=== PATIENT | female | born 1970 | race American Indian/Alaskan Native ===

== ENCOUNTER 2020-04-12 06:30 | Day surgery (SDC) | payer OTHER ==
[~2020-04-12 06:30] MED LIST: Lactated Ringers 1,000 ML IV SCH; Sodium Chloride 0.9% 10 ML SDV IV PRN; Sodium Chloride 0.9% 10 ML Syringe FLUSH PRN; Sodium Chloride 0.9% 2.5 ML Syringe FLUSH PRN
--- NOTE | 2020-04-12 07:10 | PCM.PREANE ---
Preanesthetic Assessment - Anesthesia/Transfusion/Family Hx Anesthesia History: Prior Anesthesia Without Reaction Family History of Anesthesia Reaction: No Transfusion History: No Prior Transfusion(s) Intubation History: Unknown - Review of Systems General: No Symptoms Pulmonary: No Symptoms Cardiovascular: No Symptoms Gastrointestinal: No Symptoms Neurological: No Symptoms Other: Reports: None - Physical Assessment Height: 5 ft 10 in Weight: 97.522 kg ASA Class: 2 Mental Status: Alert & Oriented x3 Airway Class: Mallampati = 1 Dentition: Reports: Normal Dentition Thyro-Mental Finger Breadths: 3 Mouth Opening Finger Breadths: 3 ROM/Head Extension: Full Lungs: Clear to Auscultation, Normal Respiratory Effort Cardiovascular: Regular Rate, Regular Rhythm - Allergies Allergies/Adverse Reactions: Allergies Allergy/AdvReac Type Severity Reaction Status Date / Time diclofenac Allergy Cannot Verified 04/09/20 12:02 Remember hydroxychloroquine Allergy Rash Verified 04/09/20 12:02 [From Plaquenil] sulfamethoxazole Allergy Rash Verified 04/09/20 12:02 [From Bactrim] trimethoprim [From Bactrim] Allergy Rash Verified 04/09/20 12:02 - Blood Blood Available: No - Anesthesia Plan Pre-Op Medication Ordered: None - Acknowledgements Anesthesia Type Planned: General Anesthesia Pt an Appropriate Candidate for the Planned Anesthesia: Yes Alternatives and Risks of Anesthesia Discussed w Pt/Guardian: Yes Pt/Guardian Understands and Agrees with Anesthesia Plan: Yes PreAnesthesia Questionnaire HEENT History: Reports: Other (See Below) Other HEENT History: wears glasses/contacts, hx fx nose Cardiovascular History: Reports: Other (See Below) Other Cardiovascular History: HTN in the past Respiratory History: Reports: None Gastrointestinal History: Reports: None Genitourinary History: Reports: None Musculoskeletal History: Reports: Fibromyalgia (mild) Neurological History: Reports: None Psychiatric History: Reports: Anxiety Endocrine/Metabolic History: Reports: Obesity/BMI 30+ (BMI 30.8) Hematologic History: Reports: Other (See Below) (h/o anemia) Immunologic History: Reports: None Oncologic (Cancer) History: Reports: None Dermatologic History: Reports: None - Past Surgical History Head Surgeries/Procedures: Reports: None HEENT Surgical History: Reports: None Cardiovascular Surgical History: Reports: None Respiratory Surgical History: Reports: None GI Surgical History: Reports: None Female Surgical History: Reports: None Endocrine Surgical History: Reports: None Neurological Surgical History: Reports: None Musculoskeletal Surgical History: Reports: Arthroscopic Knee, Other (See Below) Other Musculoskeletal Surgeries/Procedures:: anaid knee scopes, left foot reconstruction Oncologic Surgical History: Reports: None Dermatological Surgical History: Reports: None - SUBSTANCE USE Smoking Status *Q: Light Tobacco Smoker (< 5 cigarettes per day) Tobacco Use Within Last Twelve Months: Cigarettes - HOME MEDS Home Medications: Home Meds . [No Known Home Meds] 04/09/20 [History] - CURRENT (IN HOUSE) MEDS Current Meds: Current Medications Lactated Ringer's (Ringers, Lactated) 1,000 mls @ 100 mls/hr IV ASDIRECTED LEOY Sodium Chloride (Saline Flush) 10 ml FLUSH ASDIRECTED PRN PRN Reason: Keep Vein Open Sodium Chloride (Saline Flush) 2.5 ml FLUSH ASDIRECTED PRN PRN Reason: Keep Vein Open Sodium Chloride (Normal Saline) 10 ml IV ASDIRECTED PRN PRN Reason: IV Use
[2020-04-12] MEDS ORDERED: Midazolam 1 MG/ML 2 ML SDV ONE (07:16)
[2020-04-12] MEDS ORDERED: Propofol 200 MG/20 ML SDV ONE (07:16)
[2020-04-12] MEDS ORDERED: fentaNYL 100 MCG/2 ML SDV ONE (07:16)
[2020-04-12] MEDS ORDERED: Lidocaine 2% 5 ML SDV ONE (07:17)
[2020-04-12] MEDS ORDERED: Ondansetron 4 MG/2 ML SDV ONE (08:15)
[2020-04-12] MEDS ORDERED: Dexamethasone 4 MG/ML 5 ML MDV ONE (08:15)
[2020-04-12] MEDS ORDERED: Ketorolac 30 MG/ML SDV IVPUSH PRN (08:20)
[2020-04-12] MEDS ORDERED: Naloxone 0.4 MG/ML Syringe IVPUSH PRN (08:20)
[2020-04-12] MEDS ORDERED: fentaNYL 100 MCG/2 ML SDV IVPUSH PRN (08:20)
[2020-04-12] MEDS ORDERED: Atropine 0.1 MG/ML 10 ML Syringe IVPUSH PRN ×2 (08:20)
[2020-04-12] MEDS ORDERED: EPINEPHrine 1:10,000 1 MG/10 ML Syringe IVPUSH PRN (08:20)
[2020-04-12] MEDS ORDERED: Albuterol 0.083% 2.5 MG/3 ML Neb Soln NEB PRN (08:20)
[2020-04-12] MEDS ORDERED: 50% Dextrose in Water 50 ML Syringe IVPUSH PRN (08:20)
[2020-04-12] MEDS ORDERED: Acetaminophen/HYDROcodone 325-5 MG Tab PO PRN (08:51)
[2020-04-12] MEDS ORDERED: Tranexamic Acid 1,000 MG in Sodium Chloride 0.9% 100 ML IV ONE (08:51)
--- NOTE | 2020-04-12 09:28 | PCM.POSTAN ---
POST ANESTHESIA ASSESSMENT - MENTAL STATUS Mental Status: Alert, Oriented - VITAL SIGNS Vital Signs: Last Vital Signs Temp 36.1 C 04/12/20 08:48 Pulse 68 04/12/20 09:13 Resp 15 04/12/20 09:13 BP 137/88 04/12/20 09:13 Pulse Ox 93 L 04/12/20 09:13 - RESPIRATORY Respiratory Status: Respiratory Rate WNL, Airway Patent, O2 Saturation Stable - CARDIOVASCULAR CV Status: Pulse Rate WNL, Blood Pressure Stable - GASTROINTESTINAL GI Status: No Symptoms - PAIN Pain Score: 3 - POST OP HYDRATION Hydration Status: Adequate & Stable - OBSERVATIONS Free Text/Narrative:: no anesthesia problems
--- NOTE | 2020-04-12 11:26 | PCM48HPAN ---
Post Anesthesia Note - EVALUATION WITHIN 48HRS OF ANESTHETIC Vital Signs in Normal Range: Yes Patient Participated in Evaluation: Yes Respiratory Function Stable: Yes Airway Patent: Yes Cardiovascular Function Stable: Yes Hydration Status Stable: Yes Pain Control Satisfactory: Yes Nausea and Vomiting Control Satisfactory: Yes Mental Status Recovered: Yes Vital Signs: Last Vital Signs Temp 36.1 C 04/12/20 09:25 Pulse 64 04/12/20 10:10 Resp 16 04/12/20 10:10 BP 128/76 04/12/20 10:10 Pulse Ox 96 04/12/20 10:10 - COMMENTS/OBSERVATIONS Free Text/Narrative:: No anesthesia problems
--- NOTE | 2020-04-12 15:27 | OR ---
SURGEON: Kaveh Lyman MD DATE OF PROCEDURE: 04/12/2020 INDICATION FOR PROCEDURE: A 50-year-old female who presented initially for a workup of urinary incontinence found to have a prolapsing cervical mass. A biopsy was performed in the office and was nondiagnostic due to limited tissue. Pelvic ultrasound showed 4cm mass cystic protruding from the cervical os. The uterus was normal appearing with IUD in place. Due to the appearance of the mass, discussed with her the importance of getting better tissue sample for diagnosis to exclude malignancy, and she was agreeable to excision in the OR. PREOPERATIVE DIAGNOSIS: 1. Prolapsing Cervical mass. POSTOPERATIVE DIAGNOSIS: 1. Prolapsing Cervical mass. PROCEDURES PERFORMED: Hysteroscopy, dilation and curettage, removal of Mirena IUD, excision of cervical mass. ANESTHESIA: General anesthesia. ANESTHESIOLOGIST: Dr. Briana Marquez. ESTIMATED BLOOD LOSS: 50 mL. FINDINGS: Uterus was normal size, anteverted, and mobile. No adnexal masses were felt. A 4 cm cystic prolapsing cervical mass was removed in its entirety and sent to pathology. The endometrial lining appears hyperplastic with polypoid tissue. Both tubal ostia were visualized. Endometrial curettage was performed and sent to pathology. DESCRIPTION OF PROCEDURE: The patient was consented. The risks of procedure including bleeding; infection; DVT; and injury to surrounding organs including bladder, bowel, ureters were discussed with the patient and all questions answered. Consent signed. She was taken to the operating room, placed under general anesthesia. She was placed in dorsal lithotomy position with her legs supported using stirrups. She was prepped with Betadine and draped in sterile fashion. The bladder was drained with a straight catheter. Manual exam was performed. The uterus was found to be normal sized, anteverted, and mobile. A weighted speculum was placed in the vagina and a 4 cm cystic mass was noted to be protruding from the cervix. On palpation it was attached to the internal os of the cervix from a stalk. The anterior lip of the cervix was grasped with an Allis clamp. The cervical mass was removed by grasping the mass with an Allis clamp and twisting until it from the connecting stalk. The remaining tissue was removed in similar fashion and sent to pathology. The cervix was then dilated to 5 cm with Hegar dilators. The hysteroscope was placed in the uterus under direct visualization with normal saline as distention medium. The endometrial lining was hyperplastic appearing with diffuse polypoid tissue covering the entire cavity. The hysteroscope was then removed and the fluid deficit was 65 mL. A sharp curettage was carefully performed and the endometrial curettings were sent to pathology. Pap smear in [facility] was also obtained and sent to pathology. The tenaculum was removed and the cervix was found to be hemostatic. The speculum was removed. The patient was cleaned and taken off dorsal lithotomy position. She was awoken from anesthesia and taken to the recovery room in stable condition. WINSTON AVINA /[id number] EARNEST
== END 2020-04-12 11:15 | disposition home or self-care (01) ==
LOC: MW.SDS 06:30
PROVIDERS: ATTEND Obstetrics & Gynecology
DX: N84.1 Polyp of cervix uteri (principal); I10 Essential (primary) hypertension; F41.9 Anxiety disorder, unspecified; E66.9 Obesity, unspecified; D64.9 Anemia, unspecified; F17.210 Nicotine dependence, cigarettes, uncomplicated; Z68.30 Body mass index [BMI] 30.0-30.9, adult; Z88.2 Allergy status to sulfonamides; Z88.1 Allergy status to other antibiotic agents; Z88.8 Allergy status to other drugs, medicaments and biological substances
CPT/HCPCS: 57500; 58301; 58558; 87624; 88175; 88305; A9270; J1100; J1885; J2001; J2250; J2405; J2704; J3010; J7120; 00952; G0145